=== PATIENT | female | born 1985 | race Caucasian/White ===

== ENCOUNTER 2022-12-02 17:40 | Emergency (ER) | payer SELFPAY ==
[2022-12-02 18:08] VITALS: RESP 18; BMI 27.2
[2022-12-02 19:46] LABS: PH,URINE 5.5 (5.0-8.0); URINE APPEARANCE CLEAR; URINE BILIRUBIN NEGATIVE (NEGATIVE); URINE COLOR YELLOW; URINE GLUCOSE (UA) NEGATIVE (NEGATIVE); URINE KETONE NEGATIVE (NEGATIVE); URINE LEUK ESTERASE NEGATIVE (NEGATIVE); URINE NITRITE NEGATIVE (NEGATIVE); URINE PROTEIN NEGATIVE (NEGATIVE); URINE UROBILINOGEN 0.2 mg/dL (0.2-1.0)
[2022-12-02 19:48] LABS: HCG,QUALITATIVE URINE Negative
[2022-12-02 20:26] LABS: BASO % 0.7 % (0-2.0); EOS % 4.8 % (0-4.5); HEMATOCRIT 36.5 % (32.4-45.2); HEMOGLOBIN 12.4 GM/dL (10.7-15.3); MCH 31.4 pg (25.7-33.7); MCHC 33.9 g/dl (32.0-36.0); MEAN CELL VOLUME 92.6 fl (80-96); MEAN PLT VOLUME 7.9 fl (7.5-11.1); MONO % 6.6 % (3.8-10.2); NEUT % 57.9 % (42.8-82.8); PLATELET COUNT 222 10^3/uL (134-434); RBC 3.94 M/mm3 (3.60-5.2); RDW 13.1 % (11.6-15.6); WHITE BLOOD COUNT 9.6 K/mm3 (4.0-10.0)
[2022-12-02 20:51] LABS: CALCIUM 8.7 mg/dL (8.5-10.1)
[2022-12-02 20:52] LABS: ALBUMIN 3.9 g/dl (3.4-5.0); POTASSIUM 3.6 mmol/L (3.5-5.1)
[2022-12-02 20:55] LABS: CREATININE 0.8 mg/dL (0.55-1.3)
[2022-12-02 20:56] LABS: BILIRUBIN,TOTAL 0.3 mg/dL (0.2-1); TOT PROT 7.4 g/dl (6.4-8.2)
[2022-12-02 22:47] VITALS: BP 101/66; PULSE 61; TEMP 97.9
== END 2022-12-02 23:20 | disposition home or self-care (01) ==
LOC: JER 17:40
DX: R10.30 Lower abdominal pain, unspecified (principal); N83.202 Unspecified ovarian cyst, left side
CPT/HCPCS: 36415; 76830-TC; 80053; 81003; 84703; 85025; 87491; 87591; 99284-25